=== PATIENT | female | born 1985 | race Caucasian/White ===

== ENCOUNTER 2020-04-27 11:26 | Emergency (ER) | payer BC, SELFPAY ==
[~2020-04-27] VITALS: Ht 160 cm; Wt 72.6 kg
[2020-04-27 11:39] VITALS: BP_SYST 101
--- NOTE | 2020-04-27 11:40 | NUR ---
Patient to ER tent 1 to gown for evaluation. Side rails up.
--- NOTE | 2020-04-27 11:42 | NUR ---
pt arrives from home w/ c/o H/A, loss of taste, and smell since Wednesday. Pt also c/o possible fever, although she admits to not checking her temperature. Pt had a negative covid test 3 weeks ago
--- NOTE | 2020-04-27 11:48 | NUR ---
ER at bedside examining patient.
--- NOTE | 2020-04-27 11:55 | NUR ---
covid swab collected and sent to the lab
[2020-04-27] MEDS ORDERED: AZIT250T PO (12:34)
[2020-04-27] MEDS ORDERED: ALBMDI INH (12:34)
[2020-04-27] MEDS ORDERED: PRED20TA PO (12:34)
[2020-04-27 12:43] VITALS: BP_SYST 101
--- NOTE | 2020-04-27 12:43 | NUR ---
Patient given written and verbal discharge instructions and verbalizes understanding. ER MD discussed with patient the results and treatment provided. Patient in stable condition. ID arm band removed. Rx of albuterol, Zithromax, and prednisone given. Patient educated on pain management and to follow up with PMD. Pain Scale 0/10. Opportunity for questions provided and answered. Medication side effect fact sheet provided.
== END 2020-04-27 12:43 | disposition home or self-care (01) ==
LOC: SED 11:26
DX: J40 Bronchitis, not specified as acute or chronic (principal); Z20.828 Contact with and (suspected) exposure to other viral communicable diseases
CPT/HCPCS: 71045; 99284; U0003